=== PATIENT | female | born 1945 | race Caucasian/White ===

== ENCOUNTER 2024-03-12 06:18 | Day surgery (SDC) | payer OTHER ==
[2024-03-11 13:43] LABS: Anion Gap 7.9 mEq/L (5.0-15.0); Potassium 3.9 mEq/L (3.5-5.1)
[2024-03-11 13:47] LABS: Absolute Eosinophils 0.1 K/uL (0-0.5); Absolute Lymphocytes (CBC) 1.5 K/uL (0.7-4.9); Absolute Monocytes 0.3 K/uL (0.1-1.3); Absolute Neutrophil 4.2 K/uL (1.8-8.0); Basophils % 0.6 % (0-1.3); Eosinophils % 2.3 % (0-4.4); Hematocrit 33.9 % (36.0-45.0); Hemoglobin 11.3 g/dL (12.0-15.0); Lymphocytes % 24.1 % (15.3-44.8); MCH 31.4 pg (27.0-35.0); MCHC 33.4 g/dL (32.0-36.0); MCV 94.2 fL (80-100); MPV 9.5 fL (7.6-11.3); Monocytes % 5.5 % (3.3-12.3); Neutrophils % 67.5 % (41.7-73.7); Platelets 208 thou/uL (152-406); Red Cell Distribution Width 13.4 % (12.1-15.2)
[2024-03-12] MEDS: Ringers Lactate 1,000 ML IV ONE (07:00)
[2024-03-12] MEDS ORDERED: LIDOCAINE 1% MPF 5 ML VIAL ONE (07:22)
[2024-03-12] MEDS ORDERED: propofoL 200 MG/20 ML VIAL IV ONE (07:22)
[2024-03-12 10:21] VITALS: BP 133/60; TEMP 98; O2SAT 100
--- NOTE | 2024-03-12 13:10 | EKG ---
Test Date: 2024-03-11 Test Time: 13:09:01 Liner Reroll Tender: PREO MEASUREMENT RESULTS: Intervals: Rate: 76 OR: 136 QRSD: 106 QT: 438 QTc: 492 [place]: P: 62 OR: 136 QRS: 44 T: 16 INTERPRETIVE STATEMENTS: Normal sinus rhythm Prolonged QT Abnormal ECG Compared to ECG 02/26/2008 22:46:48 Prolonged QT interval now present Electronically Signed On 03-12-24 13:06:19 CDT by Madhu Rincon
== END 2024-03-12 09:24 | disposition home or self-care (01) ==
LOC: OR 06:18
PROVIDERS: ATTEND Surgery
PROC: 0DBE8ZX Excision of Large Intestine, Via Natural or Artificial Opening Endoscopic, Diagnostic (ICD-10-PCS; principal; 2024-03-12 07:30)
DX: Z12.11 Encounter for screening for malignant neoplasm of colon (principal); D12.6 Benign neoplasm of colon, unspecified; K57.30 Diverticulosis of large intestine without perforation or abscess without bleeding; K62.3 Rectal prolapse; K64.8 Other hemorrhoids; K64.4 Residual hemorrhoidal skin tags
CPT/HCPCS: 93005; 85025; 80048; 36415; 88305; 45384; J2704; J2001; J7120

== ENCOUNTER 2024-05-07 08:15 | Observation (INO) | payer OTHER ==
[2024-05-06 16:08] LABS: Absolute Eosinophils 0.1 K/uL (0-0.5); Absolute Lymphocytes (CBC) 1.4 K/uL (0.7-4.9); Absolute Monocytes 0.5 K/uL (0.1-1.3); Absolute Neutrophil 3.9 K/uL (1.8-8.0); Basophils % 0.7 % (0-1.3); Eosinophils % 2.4 % (0-4.4); Hematocrit 31.3 % (36.0-45.0); Hemoglobin 10.5 g/dL (12.0-15.0); Lymphocytes % 23.2 % (15.3-44.8); MCH 31.3 pg (27.0-35.0); MCHC 33.6 g/dL (32.0-36.0); MCV 93.2 fL (80-100); MPV 8.7 fL (7.6-11.3); Monocytes % 7.8 % (3.3-12.3); Neutrophils % 65.9 % (41.7-73.7); Platelets 213 thou/uL (152-406); RBC Red Blood Cell Count 3.36 M/uL (3.86-4.86); Red Cell Distribution Width 12.9 % (12.1-15.2)
--- NOTE | 2024-05-06 16:20 | RAD REPORT ---
EXAM DESCRIPTION: Sheng Alcantara (2 Views)05/06/2024 4:06 pm CLINICAL HISTORY: Preop for hernia surgery COMPARISON: 2018 FINDINGS: The lungs appear clear of acute infiltrate. The heart is normal size IMPRESSION: No acute abnormalities displayed
[2024-05-06 16:21] LABS: Anion Gap 6.5 mEq/L (5.0-15.0); Potassium 3.5 mEq/L (3.5-5.1)
[2024-05-07] MEDS: Ringers Lactate 1,000 ML IV ONE ×2 (08:33→12:04)
[2024-05-07] MEDS ORDERED: LIDOCAINE 2% MPF 5 ML VIAL ONE (09:36)
[2024-05-07] MEDS ORDERED: propofoL 200 MG/20 ML VIAL IV ONE (09:36)
[2024-05-07] MEDS ORDERED: FENTANYL CITR 100 MCG/2 ML ONE ×3 (09:36→11:58)
[2024-05-07] MEDS ORDERED: ROCURONIUM 50 MG/5 ML VIAL IV ONE (09:36)
[2024-05-07] MEDS: CEFAZOLIN SODIUM 1 GM/VIAL ONE (10:14)
[2024-05-07] MEDS ORDERED: dexAMETHasone 4 MG/ML VIAL ONE (11:11)
[2024-05-07] MEDS ORDERED: ONDANSETRON 4 MG/2 ML VIAL ONE (11:11)
[2024-05-07] MEDS ORDERED: GLYCOPYRROLATE 0.2 MG/ML SYR ONE (11:26)
[2024-05-07] MEDS ORDERED: NEOSTIGMINE 1 MG/ML -10 ML VIAL ONE (11:27)
[2024-05-07] MEDS ORDERED: SODIUM CHLORIDE 0.9% 10ML INJ IV PRN (11:57)
[2024-05-07] MEDS ORDERED: HYDROCODONE/APAP 5/325 MG TAB PO PRN (11:57)
[2024-05-07] MEDS ORDERED: ONDANSETRON 4 MG/2 ML VIAL IV PRN (11:57)
--- NOTE | 2024-05-07 11:57 | P.BOP ---
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 recurrent incisional ventral hernia with mesh Secondary procedure: 10x5cm Other procedure(s): 2. extensive intrab adhesions, 3. REmoval of old mesh Primary Operator: Ayaka Vera) Estimated blood loss: <50cc Specimen: sac with mesh and metal clips Findings: as above Anesthesia: General Complications: None Implants: Ventralight ST mesh with ECHO PS Transferred to: Recovery Room Condition: Good
[2024-05-07] MEDS ORDERED: ESMOLOL HCL 0 ML IV ONE (11:59)
[2024-05-07] MEDS: FENTANYL CITR 100 MCG/2 ML ONE (12:29)
[2024-05-07] MEDS: HYDROMORPHONE HCL 1 MG/ML INJ ONE (12:52)
[2024-05-07] MEDS: MORPHINE 4 MG/ML SYR IV PRN (15:56)
[2024-05-07] MEDS: CEFOXITIN 1 GM in NA CHLORIDE 0.9% 50 ML IVPB SCH (15:56)
[2024-05-07] MEDS: NA CHLORIDE 0.9% 1,000 ML IV SCH (15:57)
[2024-05-07 16:19] VITALS: BMI 19.9
[2024-05-07 20:37] VITALS: O2SAT 100
[2024-05-08] MEDS: CEFOXITIN 1 GM in NA CHLORIDE 0.9% 50 ML IVPB SCH (01:15)
[2024-05-08 04:11] LABS: Absolute Lymphocytes (CBC) 0.7 K/uL (0.7-4.9); Absolute Monocytes 0.7 K/uL (0.1-1.3); Absolute Neutrophil 6.5 K/uL (1.8-8.0); Basophils % 0.2 % (0-1.3); Hematocrit 25.6 % (36.0-45.0); Hemoglobin 8.9 g/dL (12.0-15.0); Lymphocytes % 9.1 % (15.3-44.8); MCH 32.2 pg (27.0-35.0); MCHC 34.5 g/dL (32.0-36.0); MCV 93.3 fL (80-100); MPV 8.4 fL (7.6-11.3); Monocytes % 8.3 % (3.3-12.3); Neutrophils % 82.4 % (41.7-73.7); Nucleated Red Blood Cells % 0.2 % (0-0); Platelets 181 thou/uL (152-406); RBC Red Blood Cell Count 2.75 M/uL (3.86-4.86)
[2024-05-08 04:20] LABS: Anion Gap 8.3 mEq/L (5.0-15.0); Potassium 3.3 mEq/L (3.5-5.1)
[2024-05-08 08:56] VITALS: BP 116/57; TEMP 97.9
--- NOTE | 2024-05-08 09:15 | P.DS ---
Admission Date: 05/07/24 Discharge Date: 05/08/24 Disposition: ROUTINE DISCHARGE Discharge Condition: GOOD Hospital Course: unremarkable Vital Signs/Physical Exam: Temp Pulse Resp BP Pulse Ox 97.9 F 73 15 116/57 L 100 05/08/24 08:00 05/08/24 08:00 05/08/24 08:00 05/08/24 08:00 05/08/24 08:00 General: Alert, In no apparent distress, Oriented x3 HEENT: PERRLA, EOMI Neck: Supple Respiratory: Normal air movement Cardiovascular: No edema, Normal pulses Gastrointestinal: Soft and benign Musculoskeletal: No erythema, No tenderness, No warmth Integumentary: No rashes, No breakdown, No erythema, No warmth, No cyanosis Neurological: Normal speech Rectal: Deferred Laboratory Data at Discharge: WBC 7.90 thou/uL (4.3-10.9) 05/08/24 03:37 Hgb 8.9 g/dL (12.0-15.0) L 05/08/24 03:37 Hct 25.6 % (36.0-45.0) L 05/08/24 03:37 Plt Count 181 thou/uL (152-406) 05/08/24 03:37 Sodium 140 mEq/L (136-145) 05/08/24 03:37 Potassium 3.3 mEq/L (3.5-5.1) L 05/08/24 03:37 BUN 16 mg/dL (7-18) 05/08/24 03:37 Creatinine 0.76 mg/dL (0.55-1.02) 05/08/24 03:37 Glucose 98 mg/dL (74-106) 05/08/24 03:37 Home Medications: Hydroxychloroquine [Plaquenil*] 1 tab PO DAILY 03/12/24 Physician Discharge Instructions: keep area dry for 24h then may remove outer dressing and shower. Cover leisa with antibiotic ointment and bandaid after. Abodominal binder while ouy of bed TO get new abdominal binder she may try calling [facility] [phone] Diet: AHA Activity: No lifting more than 10 lbs Followup: COLEMAN MORALES [Primary Care Provider] - If your Symptoms Worsen Giuseppe Lopez MD [ACTIVE - CAN ADMIT] - 1 Week
[2024-05-08] MEDS: PANTOPRAZOLE 40 MG INJ IVP SCH (09:18)
== END 2024-05-08 10:32 | disposition home or self-care (01) ==
LOC: OR 08:15 → 2ND 11:57
PROVIDERS: ADMIT Surgery; ATTEND Surgery
PROC: 0DNL4ZZ Release Transverse Colon, Percutaneous Endoscopic Approach (ICD-10-PCS; 2024-05-07)
PROC: 0WUF4JZ Supplement Abdominal Wall with Synthetic Substitute, Percutaneous Endoscopic Approach (ICD-10-PCS; principal; 2024-05-07 10:00)
DX: K43.0 Incisional hernia with obstruction, without gangrene (principal); K43.6 Other and unspecified ventral hernia with obstruction, without gangrene; K56.609 Unspecified intestinal obstruction, unspecified as to partial versus complete obstruction
CPT/HCPCS: 36415; 71046; 80048; 85025; 88302; 94010; C9113; G0378; G0379; J0690; J0694; J1100; J1170; J2001; J2405; J2704; J2710; J3010; J7030; J7120